=== PATIENT | female | born 1970 | race Caucasian/White ===

== ENCOUNTER 2017-10-19 07:51 | Day surgery (SDC) | payer OTHER ==
[~2017-10-19 07:51] MED LIST: ACETAMINOPHEN 1,000 MG/100 ML BTL IV ONE; FAMOTIDINE 20MG TABLET PO ONE; MECLIZINE 25 MG TABLET PO ONE; METOCLOPRAMIDE 10 MG TABLET PO ONE
[2017-10-19] MEDS ORDERED: LIDOCAINE 2% MDV (20MG/ML) 20ML VIAL IV ONE (07:52)
[2017-10-19] MEDS ORDERED: DEXAMETHASONE 4 MG/ML 1ML VIAL IVP ONE (07:52)
[2017-10-19] MEDS ORDERED: ROCURONIUM BROMIDE 50MG/5ML VIAL IV ONE (07:52)
[2017-10-19] MEDS ORDERED: PROPOFOL 10 MG/ML VIAL IV ONE (07:52)
[2017-10-19] MEDS ORDERED: SEVOFLURANE 250 ML INH ONE (07:52)
[2017-10-19] MEDS ORDERED: ONDANSETRON HCL IV 4 MG/2 ML VIAL IVP ONE (07:52)
[2017-10-19] MEDS ORDERED: KETOROLAC 30 MG/ML VIAL IVP ONE (07:52)
[2017-10-19] MEDS ORDERED: BUPIVACAINE 0.75% W/EPI MPF 30ML VIAL IVP ONE (07:52)
[2017-10-19] MEDS ORDERED: SUGAMMADEX SODIUM 200 MG/2 ML VIAL IV ONE (07:52)
--- NOTE | 2017-10-20 10:10 | Operative Note ---
DATE OF SURGERY: 10/19/2017 Surgeon: Moe Marcelo DO PREOPERATIVE DIAGNOSIS: Cholelithiasis. OPERATION: Laparoscopic cholecystectomy. Indication: The patient is a 47-year-old female who was noted to have cholelithiasis. She had mainly back pain issues postprandially. We did discuss cholecystectomy versus medical management. She desired surgical intervention. Risks include but are not limited to bleeding, infection, ductal injury, possible conversion to open, postoperative bile leak, nonresolution of her symptoms. She understood this fully. PROCEDURE: Therefore, after consent was signed and questions answered, she was taken to the operating room and placed in a supine position. General anesthesia was administered per the department of anesthesia. The patient's abdomen was prepped and draped in the usual sterile fashion. At this time, an adequate timeout was performed. She did receive preoperative DVT prophylaxis as well as preoperative antibiotic. At this time, the supraumbilical region was anesthetized with a total of 5 mL of 0.25% Sensorcaine with epinephrine. A 2 cm supraumbilical incision was made. This was carried down to the anterior rectus fascia. This was incised. Edna clamps were placed on the fascial edges and brought up into the wound. Stay sutures of 0 Vicryl were placed. Posterior rectus sheath was identified and incised. The peritoneal cavity was entered bluntly. At this time, a 10 mm blunt Anjana port was placed. Adequate pneumoperitoneum was established. Under direct visualization, additional 5 mm epigastric and two 5 mm right subcostal ports were placed. The patient was then rotated into reverse Trendelenburg with rotation to left. General exam was done. Both lobes of the liver were smooth and glistening. Stomach appeared normal. External exam of small and large bowel appeared normal as well. The gallbladder was identified. The fundus was identified and lifted anteriorly. This was covered with dense coating of omentum anteriorly. This was peeled down bluntly and further cephalad and lateral retraction was applied. The hepatocystic triangle was thoroughly dissected out. There was no aberrant anatomy, no posterior ductal structures. The cystic duct and cystic artery were clearly identified. We did release the distal half of the gallbladder from the cystic plate elongating a retro-cystic window. The cystic artery was taken down with the Jaswant harmonic. Cystic duct was triply clipped and cut in a standard fashion. Gallbladder was then taken off the liver bed with the Jaswant hormonic. This was extracted infraumbilically. Right upper quadrant was rechecked. There was one bleeding spot in the liver which was controlled with the Jaswant harmonic. There was no bowel injury, no further bleeding, no ductal injury. At this time, pneumoperitoneum was released. All ports were removed. The fascia was closed with 0 Vicryl in a [id number] fashion. The skin of all 4 ports was closed with 4-0 Vicryl. The patient was taken to the recovery room in satisfactory condition. FINDINGS AT THE TIME OF SURGERY: Chronic cholecystitis exhibited by anterior adhesions and some mild edema in the wall of the gallbladder. Final pathology pending. CC: Moe MARMOLEJO
== END 2017-10-19 11:45 | disposition home or self-care (01) ==
LOC: SUR 07:51
PROVIDERS: ATTEND Surgery
DX: K80.18 Calculus of gallbladder with other cholecystitis without obstruction (principal)
CPT/HCPCS: 47562; 00790; J1885; J2405; J3490 ×2

== ENCOUNTER 2019-02-21 07:09 | Day surgery (SDC) | payer OTHER ==
[2019-02-21] MEDS ORDERED: MIDAZOLAM HCL 2MG/2ML VIAL IV ONE (07:10)
[2019-02-21] MEDS ORDERED: PROPOFOL 10 MG/ML VIAL IV ONE (07:10)
[2019-02-21] MEDS ORDERED: LIDOCAINE 2% MDV (20MG/ML) 20ML VIAL IV ONE (07:10)
--- NOTE | 2019-02-25 13:11 | Operative Note ---
DATE OF SURGERY: 02/21/2019 SURGEON: Moe Marcelo DO PREOPERATIVE DIAGNOSIS: Chronic diarrhea, abdominal pain. POSTOPERATIVE DIAGNOSIS: Chronic diarrhea, abdominal pain. OPERATION: Colonoscopy to the cecum. PROCEDURE: The patient is a 48-year-old female who was brought to the endoscopy suite, placed in a supine position. Appropriate monitoring was placed including nasal O2, pulse oximetry, and blood pressure cuff. The patient was rotated into the left lateral position. Propofol anesthesia was titrated to effect. After the go ahead by anesthesia, a digital rectal exam was done. There were no internal masses. At this time, a well-lubricated [id number] colonoscope was inserted into the patient's rectum and advanced up the sigmoid, to the descending, over the transverse, down the ascending colon to the cecum. All parts of the colon inspected. These all appeared to be grossly normal. Once the cecum was reached, it was identified by the appendiceal orifice and ileocecal valve. This appeared grossly normal as well. The scope was then slowly withdrawn inspecting all mucosal surface areas. There was no fold or distensibility seen. Retroflexion was done in the rectum which did reveal grade hemorrhoids. At this time, scope was straightened, gas evacuated, scope was fully removed. FINDINGS AT THE TIME OF COLONOSCOPY: 1. Normal colon. 2. Grade 1 hemorrhoids. Recommend repeating this in 10 years or sooner if any problems arise. CC: JOSELYN See
== END 2019-02-21 09:15 | disposition home or self-care (01) ==
LOC: HOP 07:09
PROVIDERS: ATTEND Surgery
DX: R19.7 Diarrhea, unspecified (principal); R10.9 Unspecified abdominal pain